=== PATIENT | male | born 1990 | race Caucasian/White ===

== ENCOUNTER 2024-11-08 14:51 | Emergency (ER) | payer BC ==
[2024-11-08 15:04] VITALS: PULSE 142; RESP 98; TEMP 97.2
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
[2024-11-08] MEDS ORDERED: Sodium Chloride 0.9% 1000 ML 1,000 ML ONE (15:39)
[2024-11-08] MEDS: Sodium Chloride 0.9% 1000 ML 1,000 ML IV STA (15:40)
[2024-11-08 16:24] LABS: Absolute Neutrophil Ct (ANC) 3.89 x10^3/uL (1.78-5.38); BASOPHIL % 0.5 % (0.2-1.2); Basophil (Absolute #) 0.03 x10^3/uL (0.01-0.08); Eosinophil % 0.3 % (0.8-7.0); Eosinophil (Absolute #) 0.02 x10^3/uL (0.04-0.54); Hematocrit 48.8 % (40.1-51.0); Hemoglobin 17.4 g/dL (13.7-17.5); IMMATURE GRAN # 0.01 x10^3u/L (0.001-0.031); IMMATURE GRAN % 0.2 % (0.001-0.429); Lymphocyte (Absolute #) 1.51 x10^3/uL (1.32-3.57); Lymphocytes % 25.9 % (21.8-53.1); Mean Cell Volume 86.4 fL (79.0-92.2); Mean Corpuscular Hemoglobin 30.8 pg (25.7-32.2); Mean Corpuscular Hgb Concent. 35.7 g/dL (32.3-36.5); Monocyte (Absolute #) 0.36 x10^3/uL (0.30-0.82); Monocytes % 6.2 % (5.3-12.2); Neutrophil % 66.9 % (34.0-67.9); Platelet Count 379 x10^3/uL (163-337); Red Blood Count 5.65 x10^6/uL (4.63-6.08); Red Cell Distribution Width 12.5 % (11.6-14.4); White Blood Count 5.8 x10^3/uL (4.23-9.07)
--- NOTE | 2024-11-08 16:34 | XRAY ---
Indication: Confusion. Abrasion. Fall. Multiple contiguous axial images obtained through the head without contrast. Comparison: None Normal appearing brain parenchyma, ventricles, and bony calvarium. Incidental 2 cm right maxillary sinus polyp/retention cyst. Mastoid air cells are clear. Impression: Normal CT head without contrast exam. Incidental right maxillary sinus polyp/retention cyst.
[2024-11-08 16:37] LABS: ACETAMINOPHEN < 10 ug/ml (10-30); ETHYL ALCOHOL 200 mg/dL (0-10); SALICYLATE < 1.0 mg/dL (2-20)
[2024-11-08 16:38] LABS: ALBUMIN 5.1 g/dL (3.5-5.0); ANION GAP 22.5 MEQ/L (5-15); BILIRUBIN,TOTAL 0.7 mg/dL (0.2-1.3); Calcium 9.8 mg/dL (8.4-10.2); Creatinine 1 0.85 mg/dL (0.66-1.25); EST GLOMERULAR FILTRATION RATE 117.7 ML/MIN; Potassium 4.4 mmol/L (3.5-5.1); Total Protein 7.9 g/dL (6.3-8.2)
--- NOTE | 2024-11-08 16:38 | XRAY ---
Indication: Confusion. Abrasion. Fall. Multiple contiguous axial images obtained through the cervical spine. Sagittal and coronal reformatted images obtained. Comparison: None C1 demonstrates congenital absence of right posterior arch. Axial images negative for acute fracture, suspicious bony lesions, or spinal canal stenosis. Sagittal and coronal reformatted images demonstrates normal alignment. Vertebral body heights/disc spaces maintained. Normal appearing craniocervical junction. Visualized noncontrasted soft tissues including lung apices are unremarkable. Impression: Congenital absent right C1 posterior arch. Remaining CT cervical spine normal.
[2024-11-08 16:46] LABS: Appearance Clear (Clear); Bacteria None Seen /HPF (None Seen); Bilirubin Negative (Negative); Blood Negative (Negative); Epithelial Cells None Seen /HPF (None Seen); Glucose, Urine Negative (Negative); Hyaline Casts NONE SEEN /LPF (0-2); Ketones Negative (Negative); Leukocyte Esterase Negative (Negative); Nitrite Negative (Negative); Ph 5.5 (4.6-8.0); Protein,Urine Dip Negative (Negative); RBC 0-2 /HPF (0-5); Specific Gravity <=1.005 (1.005-1.030); Urobilinogen 0.2 mg/dL (0.2); WBC 0-2 /HPF (0-5)
[2024-11-08 17:04] LABS: Amphetamine,Urine NEGATIVE (NEGATIVE); Barbiturate,Urine NEGATIVE (NEGATIVE); Benzodiazepine,Urine NEGATIVE (NEGATIVE); Cocaine,Urine NEGATIVE (NEGATIVE); Methadone,Urine NEGATIVE (NEGATIVE); Opiate,Urine NEGATIVE (NEGATIVE); PCP,Urine NEGATIVE (NEGATIVE); THC,Urine NEGATIVE (NEGATIVE)
[2024-11-08] MEDS ORDERED: Adacel Vial IM ONE (17:34)
[2024-11-08] MEDS: Adacel Vial IM ONE (17:36)
[2024-11-08 17:42] VITALS: BP 112/76; O2SAT 98
== END 2024-11-08 17:55 | disposition home or self-care (01) ==
LOC: ED 14:51
DX: S00.93XA Contusion of unspecified part of head, initial encounter (principal); F10.129 Alcohol abuse with intoxication, unspecified; Y90.7 Blood alcohol level of 200-239 mg/100 ml; Z23 Encounter for immunization
CPT/HCPCS: 36415; 70450; 72125; 80053; 80143; 80179; 80307; 81001; 82077; 82947; 85025; 90471; 90715; 93005; 96360; 99284; 99285